=== PATIENT | female | born 1990 | race Caucasian/White ===

== ENCOUNTER 2019-02-18 17:51 | Emergency (ER) | payer OTHER ==
[~2019-02-18] VITALS: Ht 154.9 cm; Wt 49.9 kg
[~2019-02-18 17:51] MED LIST: ATARAX25 MG PO; BACTRIM DS 8001 TA1 PO; BACTRIM DS 8001 TAB PO; BENADRYL25 M2 PO; LIDEX 0.05% CRE15 GM T; MACROBID100 M1 PO; NKHM; PEN-VK500 MG PO; PENICILLIN250 MG PO; PERCOCET 325 MG1 TA6 PO; PREDNICOT20 MG PO; PREDNISONE10 MG PO; PRENATAL1 TA1 PO; PYRIDIUM200 MG PO
[2019-02-18] MEDS ORDERED: Motrin,Rufen800 MG PO (18:53)
[2019-02-18] MEDS ORDERED: AMOXICILLIN500 M2 PO (18:53)
== END 2019-02-18 19:05 | disposition home or self-care (01) ==
LOC: ED 17:51
DX: K08.89 Other specified disorders of teeth and supporting structures (principal); Z98.890 Other specified postprocedural states; Z79.899 Other long term (current) drug therapy; Z88.8 Allergy status to other drugs, medicaments and biological substances; Z88.6 Allergy status to analgesic agent

== ENCOUNTER 2019-03-19 13:05 | Emergency (ER) | payer OTHER ==
[~2019-03-19] VITALS: Ht 154.9 cm; Wt 49.9 kg
[~2019-03-19 13:05] MED LIST changes: +AMOXICILLIN500 M2 PO; +Motrin,Rufen800 MG PO
[2019-03-19] MEDS ORDERED: AMOXICILLIN500 M2 PO (14:18)
[2019-03-19] MEDS ORDERED: IBUPROFEN600 MG PO (14:18)
== END 2019-03-19 14:35 | disposition home or self-care (01) ==
LOC: ED 13:05
DX: K08.89 Other specified disorders of teeth and supporting structures (principal); Z88.8 Allergy status to other drugs, medicaments and biological substances